=== PATIENT | female | born 1995 | race Caucasian/White ===

== ENCOUNTER 2016-03-15 15:39 | Emergency (ER) | payer OTHER ==
--- NOTE | 2016-03-15 17:40 | ED NURSING NOTES ---
Clinical Report - Nurses [facility] [address] [place] [address] 03/15/2016 15:40 Patient: ZHOU ALFONSO TRIAGE Triage time 15:54. Acuity: LEVEL 3. Chief Complaint: BOIL and TENDER AREA. Alert. No acute distress. SEPSIS SCREEN: Sepsis Screen: negative. Negative (no infection suspected/documented). --15:58 Yoly Pereira R.N. 15:54 03/15/16. BP: 121/74. HR: 79. RR: 18. O2 saturation: 100%. Temp: 98.2 F. Pain level now: 10/10. --15:58 Yoly Pereira R.N. 15:54 03/15/16. BP: 121/74. HR: 79. RR: 18. O2 saturation: 100%. Temp: 98.2 F. Pain level now: 10/10. --16:00 Yoly Pereira R.N. Weight: 58.9 kg stated. Height/Length: 65 inches Per Patient. BMI: 21.6. --15:56 Yoly Pereira R.N. Medications control. implanon. --15:55 Yoly Pereira R.N. ALBUTEROL INHALER. --15:56 Yoly Pereira R.N. Medication/allergy information source: the patient. --15:58 Yoly Pereira R.N. Allergies No Known Drug Allergy. --15:55 Yoly Pereira R.N. History Arrived by private vehicle. Historian: patient. Primary physician ([facility] in [place]). Reported as located on the abdomen. Onset. (3 months). It is described as itchy, burning and painful. She has had itching. Treatment LOG HANDLER: None. PAST MEDICAL HX: Asthma. SOCIAL HX: Light tobacco smoker (cigarette)- less than 1/2 a pack per day. Occasional alcohol use. No drug use. FALL RISK ASSESSMENT: Fall risk assessment completed. No fall risk identified. NUTRITIONAL RISK ASSESSMENT: The nutritional risk assessment revealed no deficiencies. FUNCTIONAL ASSESSMENT: Functional assessment: no impairments noted. LEARNING NEEDS ASSESSMENT: The learning needs assessment revealed no barriers. SKIN INTEGRITY ASSESSMENT: Skin integrity risk assessment completed. No skin integrity risk identified. --15:58 Yoly Pereira R.N. PAST MEDICAL HX: Immunizations: status is unknown. Last normal menstrual period- Feb 19. SURGERY HX: Tonsillectomy. ( bladder expansion). --16:00 Yoly Pereira R.N. Interventions ID band on patient. To room. --15:58 Yoly Pereira R.N. PHYSICAL ASSESSMENT Ambulatory to room. Patient gowned. GENERAL / NEURO / PSYCH: Alert. Appears in pain and anxious. Oriented X 4. HEENT: Mucous membranes are pink. RESPIRATORY: Respirations not labored. CVS: Capillary refill less than 2 seconds. GI / : Abdominal tenderness in the upper abdomen. SKIN: Skin is warm and dry. Skin tenderness present. Swelling present- abd. Increased warmth present. Erythema present. No drainage. --16:01 Yoly Pereira R.N. NURSING PROGRESS NOTES Patient gowned. Head of bed elevated. Two patient identifiers checked. Call light placed in reach. Side rails up x 2. Bed placed in lowest position. Brakes of bed on. Patient ready for evaluation. --16:01 Yoly Pereira R.N. 17:50. I & D: Incision and Drainage of abscess performed by ED physician. Assisted by one nurse. The abscess is located on the abdomen. Preparation: Incision and Drainage tray set up with 2% lidocaine. Procedure: skin cleansed with Shur-Clens; a moderate amount of pus was drained. Cavity was irrigated with saline. Sample obtained for cultures. A dressing was applied. Post-procedure: she was stable and bleeding controlled. Total time of assist / procedure: 15 minutes. --18:03 Yoly Pereira R.N. DISPOSITION / DISCHARGE 18:05. Condition at departure: improved. No learning barriers present. Discharge instructions provided and reviewed with the patient. Reviewed medication(s) side effects, precautions, dosing and course information. Prescription(s) given to the patient. Patient verbalized understanding. Written instructions provided in [place]ik. The patient was discharged home. She left the Emergency Department ambulatory and via private vehicle. Patient driving. Medication list reviewed and validated. --18:06 Yoly Pereira R.N. 18:03 03/15/16. BP: 116/71. HR: 89. RR: 20. O2 saturation: 100%. Temp: deferred. Pain level now: 10/10. 16:34 03/15/16. BP: 112/66. HR: 69. RR: 18. O2 saturation: 100%. Pain level now: 09/09. 15:54 03/15/16. BP: 121/74. HR: 79. RR: 18. O2 saturation: 100%. Temp: 98.2 F. Pain level now: 10/10. --18:06 Yoly Pereira R.N. Locked/Released at 03/15/2016 18:07 by Yoly Pereira R.N.
--- NOTE | 2016-03-15 17:40 | ED ORDER SUMMARY ---
..... Patient: ZHOU ALFONSO OrderSheet [facility] VisitID: [id number] [place] [address] 21y, F Registration Date/Time: 03/15/2016 ORDER SHEET Weight: 58.9 kg (stated) Allergies: No Known Drug Allergy GENERAL ORDERS: Culture, Wound Deep (Abdomen) (abcess) Urgent (17:37 03/15/2016 Giovanni HERNANDEZ) (Ack 17:55 LTapper) (18:06 Epifanio Alcantara) MEDICATION ORDERS: IV FLUIDS: ORDER SHEET NOTES: [Electronically signed by Yoly Pereira R.N. (18:07 03/15/2016)] [Electronically signed by Akash Lo MD (09:34 03/16/2016)] [Electronically locked/signed by Yoly Pereira R.N. (18:07 03/15/2016)]
--- NOTE | 2016-03-15 17:40 | ED ORDER SUMMARY ---
..... Patient: ZHOU ALFONSO OrderSheet [facility] VisitID: [id number] [place] [address] 21y, F Registration Date/Time: 03/15/2016 ORDER SHEET Weight: 58.9 kg (stated) Allergies: No Known Drug Allergy GENERAL ORDERS: Culture, Wound Deep (Abdomen) (abcess) Urgent (17:37 03/15/2016 Giovanni HERNANDEZ) (Ack 17:55 LTapper) (18:06 Epifanio Alcantara) MEDICATION ORDERS: IV FLUIDS: ORDER SHEET NOTES: [Electronically signed by Yoly Pereira R.N. (18:07 03/15/2016)] [Electronically signed by Akash Lo MD (09:34 03/16/2016)] [Electronically locked/signed by Yoly Pereira R.N. (18:07 03/15/2016)]
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
--- NOTE | 2016-03-15 17:40 | ED NURSING NOTES ---
Clinical Report - Nurses [facility] [address] [place] [address] 03/15/2016 15:40 Patient: ZHOU ALFONSO TRIAGE Triage time 15:54. Acuity: LEVEL 3. Chief Complaint: BOIL and TENDER AREA. Alert. No acute distress. SEPSIS SCREEN: Sepsis Screen: negative. Negative (no infection suspected/documented). --15:58 Yoly Pereira R.N. 15:54 03/15/16. BP: 121/74. HR: 79. RR: 18. O2 saturation: 100%. Temp: 98.2 F. Pain level now: 10/10. --15:58 Yoly Pereira R.N. 15:54 03/15/16. BP: 121/74. HR: 79. RR: 18. O2 saturation: 100%. Temp: 98.2 F. Pain level now: 10/10. --16:00 Yoly Pereira R.N. Weight: 58.9 kg stated. Height/Length: 65 inches Per Patient. BMI: 21.6. --15:56 Yoly Pereira R.N. Medications control. implanon. --15:55 Yoly Pereira R.N. ALBUTEROL INHALER. --15:56 Yoly Pereira R.N. Medication/allergy information source: the patient. --15:58 Yoly Pereira R.N. Allergies No Known Drug Allergy. --15:55 Yoly Pereira R.N. History Arrived by private vehicle. Historian: patient. Primary physician ([facility] in [place]). Reported as located on the abdomen. Onset. (3 months). It is described as itchy, burning and painful. She has had itching. Treatment CARDIOPULMONARY PHYSICAL THERAPIST: None. PAST MEDICAL HX: Asthma. SOCIAL HX: Light tobacco smoker (cigarette)- less than 1/2 a pack per day. Occasional alcohol use. No drug use. FALL RISK ASSESSMENT: Fall risk assessment completed. No fall risk identified. NUTRITIONAL RISK ASSESSMENT: The nutritional risk assessment revealed no deficiencies. FUNCTIONAL ASSESSMENT: Functional assessment: no impairments noted. LEARNING NEEDS ASSESSMENT: The learning needs assessment revealed no barriers. SKIN INTEGRITY ASSESSMENT: Skin integrity risk assessment completed. No skin integrity risk identified. --15:58 Yoly Pereira R.N. PAST MEDICAL HX: Immunizations: status is unknown. Last normal menstrual period- Feb 19. SURGERY HX: Tonsillectomy. ( bladder expansion). --16:00 Yoly Pereira R.N. Interventions ID band on patient. To room. --15:58 Yoly Pereira R.N. PHYSICAL ASSESSMENT Ambulatory to room. Patient gowned. GENERAL / NEURO / PSYCH: Alert. Appears in pain and anxious. Oriented X 4. HEENT: Mucous membranes are pink. RESPIRATORY: Respirations not labored. CVS: Capillary refill less than 2 seconds. GI / : Abdominal tenderness in the upper abdomen. SKIN: Skin is warm and dry. Skin tenderness present. Swelling present- abd. Increased warmth present. Erythema present. No drainage. --16:01 Yoly Pereira R.N. NURSING PROGRESS NOTES Patient gowned. Head of bed elevated. Two patient identifiers checked. Call light placed in reach. Side rails up x 2. Bed placed in lowest position. Brakes of bed on. Patient ready for evaluation. --16:01 Yoly Pereira R.N. 17:50. I & D: Incision and Drainage of abscess performed by ED physician. Assisted by one nurse. The abscess is located on the abdomen. Preparation: Incision and Drainage tray set up with 2% lidocaine. Procedure: skin cleansed with Shur-Clens; a moderate amount of pus was drained. Cavity was irrigated with saline. Sample obtained for cultures. A dressing was applied. Post-procedure: she was stable and bleeding controlled. Total time of assist / procedure: 15 minutes. --18:03 Yoly Pereira R.N. DISPOSITION / DISCHARGE 18:05. Condition at departure: improved. No learning barriers present. Discharge instructions provided and reviewed with the patient. Reviewed medication(s) side effects, precautions, dosing and course information. Prescription(s) given to the patient. Patient verbalized understanding. Written instructions provided in [place]ian. The patient was discharged home. She left the Emergency Department ambulatory and via private vehicle. Patient driving. Medication list reviewed and validated. --18:06 Yoly Pereira R.N. 18:03 03/15/16. BP: 116/71. HR: 89. RR: 20. O2 saturation: 100%. Temp: deferred. Pain level now: 10/10. 16:34 03/15/16. BP: 112/66. HR: 69. RR: 18. O2 saturation: 100%. Pain level now: 09/09. 15:54 03/15/16. BP: 121/74. HR: 79. RR: 18. O2 saturation: 100%. Temp: 98.2 F. Pain level now: 10/10. --18:06 Yoly Pereira R.N. Locked/Released at 03/15/2016 18:07 by Yoly Pereira R.N.
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
--- NOTE | 2016-03-16 09:35 | ED MAR SUMMARY ---
..... Medication Administration Record [facility] [address], [place] [id number] Patient: ZHOU ALFONSO Visit ID: [id number] 21y, F Weight: 58.9 kg Height/Length: 65 in BMI: 21.6 ALLERGIES: No Known Drug Allergy
--- NOTE | 2016-03-16 09:35 | ED DISCHARGE INSTRUCTIONS ---
Patient: ZHOU ALFONSO General Instructions [facility] VisitID: [id number] [place] [address] 21y, F Registration Date/Time: 03/15/2016 Single superficial abscess with incision and drainage. INSTRUCTIONS Protect wound and keep wound area clean. Change dressing twice daily. Warnings: Further evaluation is necessary. GENERAL WARNINGS: Return or contact your physician immediately if your condition worsens or changes unexpectedly, if not improving as expected, or if other problems arise. Prescription Medications: Bactrim DS 800 mg / 160 mg: take 1 tablet orally every 12 hours for 10 days. No refill. Substitution is permissible. OTC Medications: Acetaminophen (available over the counter): take according to label instructions. Motrin (available over the counter): take according to label instructions. Follow-up: Follow up with your doctor tomorrow in one day for wound check and packing removal. Understanding of the discharge instructions verbalized by patient. ADDITIONAL INFORMATION Abscess [Incision & Drainage] An abscess (sometimes called a boil) occurs when bacteria get trapped under the skin and begin to grow. Pus forms inside the abscess as the body responds to the bacteria. An abscess can occur with an insect bite, ingrown hair, blocked oil gland, pimple, cyst, or puncture wound. Treatment of your abscess has required an incision to drain the pus. If the abscess pocket was large, a gauze packing may have been inserted. This will need to be removed and possibly replaced on your next visit. Antibiotics are not required in the treatment of a simple abscess, unless the infection is spreading into the skin around the wound (known as cellulitis). Healing of the wound will take about one to two weeks depending on the size of the abscess. Healthy tissue will grow from the bottom and sides of the opening until it seals over. Home Care: The wound may drain for the first two days. Cover the wound with a clean dry dressing. If the dressing becomes soaked with blood or pus, change it. If a gauze packing was placed inside the abscess cavity, you may be advised to remove it yourself. You may do this in the shower. Once the packing is removed, you should wash the area in the shower or bath 3 to 4 times a day, until the skin opening has closed. If you were prescribed antibiotics, take them as directed until they are all gone. You may use acetaminophen (Tylenol) or ibuprofen (Motrin, Advil) to control pain, unless another pain medicine was prescribed. [ NOTE: If you have liver disease or ever had a stomach ulcer, talk with your doctor before using these medicines.] Follow Up with your doctor as advised by our staff. If a gauze packing was inserted in your wound, it should be removed in 1-2 days. Check your wound every day for the signs of worsening infection listed below. Get Prompt Medical Attention if any of the following occur: Increasing redness or swelling Red streaks in the skin leading away from the wound Increasing local pain or swelling Continued pus draining from the wound two days after treatment Fever of 100.4F (38C) or higher, or as directed by your healthcare provider Bandage Change If the bandage becomes wet or dirty, replace it. Otherwise, leave it in place for the first 24 hours. Then once a day: After removing the bandage, wash the area with soap and water. Use a wet cotton swab to loosen and remove any blood or crust that forms on the wound. After cleaning, apply a thin layer of antibiotic ointment or cream. Reapply the bandage. You may shower as usual after the first 24 hours. If the bandage is on an arm or leg, cover it with a plastic bag rubber banded at both ends before showering. No tub baths or swimming until the bandage is removed and the wound healed (at least 7 days). Sulfamethoxazole, Trimethoprim Oral tablet What is this medicine? SULFAMETHOXAZOLE; TRIMETHOPRIM or SMX-TMP (suhl fuh meth OK morro zohl; trye METH oh prim) is a combination of a sulfonamide antibiotic and a second antibiotic, trimethoprim. It is used to treat or prevent certain kinds of bacterial infections. It will not work for colds, flu, or other viral infections. How should I use this medicine? Take this medicine by mouth with a full glass of water. Follow the directions on the prescription label. Take your medicine at regular intervals. Do not take it more often than directed. Do not skip doses or stop your medicine early. Talk to your disability liaison officer regarding the use of this medicine in children. Special care may be needed. This medicine has been used in children as young as 2 months of age. What side effects may I notice from receiving this medicine? Side effects that you should report to your doctor or health medicare coordinator as soon as possible: allergic reactions like skin rash or hives, swelling of the face, lips, or tongue breathing problems fever or chills, sore throat irregular heartbeat, chest pain joint or muscle pain pain or difficulty passing urine red pinpoint spots on skin redness, blistering, peeling or loosening of the skin, including inside the mouth unusual bleeding or bruising unusually weak or tired yellowing of the eyes or skin Side effects that usually do not require medical attention (report to your doctor or health medicare coordinator if they continue or are bothersome): diarrhea dizziness headache loss of appetite nausea, vomiting nervousness What may interact with this medicine? Do not take this medicine with any of the following medications: aminobenzoate potassium dofetilide metronidazole This medicine may also interact with the following medications: DOLORES inhibitors like benazepril, enalapril, lisinopril, and ramipril cyclosporine digoxin diuretics indomethacin medicines for diabetes methenamine methotrexate phenytoin potassium supplements pyrimethamine sulfinpyrazone tricyclic antidepressants warfarin What if I miss a dose? If you miss a dose, take it as soon as you can. If it is almost time for your next dose, take only that dose. Do not take double or extra doses. Where should I keep my medicine? Keep out of the reach of children. Store at room temperature between 20 to 25 degrees C (68 to 77 degrees F). Protect from light. Throw away any unused medicine after the expiration date. What should I tell my health care provider before I take this medicine? They need to know if you have any of these conditions: anemia asthma being treated with anticonvulsants if you frequently drink alcohol containing drinks kidney disease liver disease low level of folic acid or [id number] dehydrogenase poor nutrition or malabsorption porphyria severe allergies thyroid disorder an unusual or allergic reaction to sulfamethoxazole, trimethoprim, sulfa drugs, other medicines, foods, dyes, or preservatives or trying to get breast-feeding What should I watch for while using this medicine? Tell your doctor or health medicare coordinator if your symptoms do not improve. Drink several glasses of water a day to reduce the risk of kidney problems. Do not treat diarrhea with over the counter products. Contact your doctor if you have diarrhea that lasts more than 2 days or if it is severe and watery. This medicine can make you more sensitive to the sun. Keep out of the sun. If you cannot avoid being in the sun, wear protective clothing and use a sunscreen. Do not use sun lamps or tanning beds/booths. Acetaminophen Oral tablet What is this medicine? ACETAMINOPHEN (a set a CLAUDIO jayna fen) is a pain reliever. It is used to treat mild pain and fever. How should I use this medicine? Take this medicine by mouth with a glass of water. Follow the directions on the package or prescription label. Take your medicine at regular intervals. Do not take your medicine more often than directed. Talk to your disability liaison officer regarding the use of this medicine in children. While this drug may be prescribed for children as young as 6 years of age for selected conditions, precautions do apply. What side effects may I notice from receiving this medicine? Side effects that you should report to your doctor or health medicare coordinator as soon as possible: allergic reactions like skin rash, itching or hives, swelling of the face, lips, or tongue breathing problems fever or sore throat redness, blistering, peeling or loosening of the skin, including inside the mouth trouble passing urine or change in the amount of urine unusual bleeding or bruising unusually weak or tired yellowing of the eyes or skin Side effects that usually do not require medical attention (report to your doctor or health medicare coordinator if they continue or are bothersome): headache nausea, stomach upset What may interact with this medicine? alcohol imatinib isoniazid other medicines with acetaminophen What if I miss a dose? If you miss a dose, take it as soon as you can. If it is almost time for your next dose, take only that dose. Do not take double or extra doses. Where should I keep my medicine? Keep out of reach of children. Store at room temperature between 20 and 25 degrees C (68 and 77 degrees F). Protect from moisture and heat. Throw away any unused medicine after the expiration date. What should I tell my health care provider before I take this medicine? They need to know if you have any of these conditions: if you frequently drink alcohol containing drinks liver disease an unusual or allergic reaction to acetaminophen, other medicines, foods, dyes or preservatives or trying to get breast-feeding What should I watch for while using this medicine? Tell your doctor or health medicare coordinator if the pain lasts more than 10 days (5 days for children), if it gets worse, or if there is a new or different kind of pain. Also, check with your doctor if a fever lasts for more than 3 days. Do not take other medicines that contain acetaminophen with this medicine. Always read labels carefully. If you have questions, ask your doctor or pharmacist. If you take too much acetaminophen get medical help right away. Too much acetaminophen can be very dangerous and cause liver damage. Even if you do not have symptoms, it is important to get help right away. Ibuprofen Oral tablet What is this medicine? IBUPROFEN (eye BYOO proe fen) is a non-steroidal anti-inflammatory drug (NSAID). It is used for dental pain, fever, headaches or migraines, osteoarthritis, rheumatoid arthritis, or painful monthly periods. It can also relieve minor aches and pains caused by a cold, flu, or sore throat. How should I use this medicine? Take this medicine by mouth with a glass of water. Follow the directions on the prescription label. Take this medicine with food if your stomach gets upset. Try to not lie down for at least 10 minutes after you take the medicine. Take your medicine at regular intervals. Do not take your medicine more often than directed. A special MedGuide will be given to you by the pharmacist with each prescription and refill. Be sure to read this information carefully each time. Talk to your disability liaison officer regarding the use of this medicine in children. Special care may be needed. What side effects may I notice from receiving this medicine? Side effects that you should report to your doctor or health medicare coordinator as soon as possible: allergic reactions like skin rash, itching or hives, swelling of the face, lips, or tongue black or bloody stools, blood in the urine or in vomit breathing problems changes in vision chest pain general ill feeling or flu-like symptoms nausea or vomiting redness, blistering, peeling or loosening of the skin, including inside the mouth slurred speech or weakness on one side of the body stomach pain unexplained weight gain or swelling unusually weak or tired yellowing of eyes or skin Side effects that usually do not require medical attention (report to your doctor or health medicare coordinator if they continue or are bothersome): constipation or diarrhea dizziness gas or heartburn stomach upset What may interact with this medicine? Do not take this medicine with any of the following medications: cidofovir ketorolac methotrexate pemetrexed This medicine may also interact with the following medications: alcohol aspirin diuretics lithium other drugs for inflammation like prednisone warfarin What if I miss a dose? If you miss a dose, take it as soon as you can. If it is almost time for your next dose, take only that dose. Do not take double or extra doses. Where should I keep my medicine? Keep out of the reach of children. Store at room temperature between 15 and 30 degrees C (59 and 86 degrees F). Keep container tightly closed. Throw away any unused medicine after the expiration date. What should I tell my health care provider before I take this medicine? They need to know if you have any of these conditions: asthma cigarette smoker drink more than 3 alcohol containing drinks a day heart disease or circulation problems such as heart failure or leg edema (fluid retention) high blood pressure kidney disease liver disease stomach bleeding or ulcers an unusual or allergic reaction to ibuprofen, aspirin, other NSAIDS, other medicines, foods, dyes, or preservatives or trying to get breast-feeding What should I watch for while using this medicine? Tell your doctor or healthcare professional if your symptoms do not start to get better or if they get worse. This medicine does not prevent heart attack or stroke. In fact, this medicine may increase the chance of a heart attack or stroke. The chance may increase with longer use of this medicine and in people who have heart disease. If you take aspirin to prevent heart attack or stroke, talk with your doctor or health medicare coordinator. Do not take other medicines that contain aspirin, ibuprofen, or naproxen with this medicine. Side effects such as stomach upset, nausea, or ulcers may be more likely to occur. Many medicines available without a prescription should not be taken with this medicine. This medicine can cause ulcers and bleeding in the stomach and intestines at any time during treatment. Ulcers and bleeding can happen without warning symptoms and can cause . To reduce your risk, do not smoke cigarettes or drink alcohol while you are taking this medicine. You may get drowsy or dizzy. Do not drive, use machinery, or do anything that needs mental alertness until you know how this medicine affects you. Do not stand or sit up quickly, especially if you are an older patient. This reduces the risk of dizzy or fainting spells. This medicine can cause you to bleed more easily. Try to avoid damage to your teeth and gums when you brush or floss your teeth. You have been given the following additional information: Abscess, Incision And Drainage Dressing Change Sulfamethoxazole, Trimethoprim Oral tablet Acetaminophen Oral tablet Ibuprofen Oral tablet (Electronically signed by Akash Lo MD 03/16/2016 9:34)
--- NOTE | 2016-03-16 09:35 | ED MED RECONCILIATION SUMMARY ---
Patient: ZHOU ALFONSO Medication Reconciliation Report Located Within [facility] VisitID: [id number] [place] [address] 21y, F Registration Date/Time: 03/15/2016 Weight: 58.9 kg Height/Length: 65 in. BMI: 21.6 ALLERGIES: No Known Drug Allergy The patient's Home Medications are listed below: THE FOLLOWING MEDICATIONS NEED TO BE RECONCILED: ALBUTEROL INHALER control. implanon The source(s) of the original Home Medication information: patient The following Medications were given to the patient in the Emergency Department: None. The following Medications were prescribed to the patient: Acetaminophen (available over the counter): take according to label instructions. -- Akash Lo MD Motrin (available over the counter): take according to label instructions. -- Akash Lo MD Bactrim DS 800 mg / 160 mg: take 1 tablet orally every 12 hours for 10 days. No refill. Substitution is permissible. -- Akash Lo MD
--- NOTE | 2016-03-16 09:35 | ED MAR SUMMARY ---
..... Medication Administration Record [facility] [address] [place], [place] [id number] Patient: ZHOU ALFONSO Visit ID: [id number] 21y, F Weight: 58.9 kg Height/Length: 65 in BMI: 21.6 ALLERGIES: No Known Drug Allergy
--- NOTE | 2016-03-16 09:35 | ED MED RECONCILIATION SUMMARY ---
Patient: ZHOU ALFONSO Medication Reconciliation Report [facility] VisitID: [id number] [place] [address] 21y, F Registration Date/Time: 03/15/2016 Weight: 58.9 kg Height/Length: 65 in. BMI: 21.6 ALLERGIES: No Known Drug Allergy The patient's Home Medications are listed below: THE FOLLOWING MEDICATIONS NEED TO BE RECONCILED: ALBUTEROL INHALER control. implanon The source(s) of the original Home Medication information: patient The following Medications were given to the patient in the Emergency Department: None. The following Medications were prescribed to the patient: Acetaminophen (available over the counter): take according to label instructions. -- Akash Lo MD Motrin (available over the counter): take according to label instructions. -- Akash Lo MD Bactrim DS 800 mg / 160 mg: take 1 tablet orally every 12 hours for 10 days. No refill. Substitution is permissible. -- Akash Lo MD
== END 2016-03-15 18:05 | disposition home or self-care (01) ==
LOC: ED SRH 15:39
DX: L02.211 Cutaneous abscess of abdominal wall (principal); F17.210 Nicotine dependence, cigarettes, uncomplicated
CPT/HCPCS: 90070; 90131; 90309; 90470; 91672

== ENCOUNTER 2016-03-16 13:02 | Emergency (ER) | payer OTHER ==
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
--- NOTE | 2016-03-20 09:55 | ED MAR SUMMARY ---
..... Medication Administration Record [facility] [address] [place], [place] [id number] Patient: ZHOU ALFONSO Visit ID: [id number] 21y, F Weight: 58.9 kg Height/Length: 65 in BMI: 21.6 ALLERGIES: No Known Drug Allergy
--- NOTE | 2016-03-20 09:55 | ED DISCHARGE INSTRUCTIONS ---
Patient: ZHOU ALFONSO General Instructions [facility] VisitID: [id number] [place] [address] 21y, F Registration Date/Time: 03/16/2016 Abscess check INSTRUCTIONS Warnings: COMPLICATIONS: Complications from this condition include: possible infection. Future problems may include infection and scarring. INFECTION: Watch for signs of infection (increasing heat and redness, pus-like drainage, swelling, or increased pain). Return or see your doctor if these signs occur. GENERAL WARNINGS: Return or contact your physician immediately if your condition worsens or changes unexpectedly, if not improving as expected, or if other problems arise. Your Current Medications: CONTINUE TAKING THE FOLLOWING MEDICATIONS: ALBUTEROL INHALER*. Bactrim Oral : 2x a day. control. implanon*. Follow-up: Follow up with your doctor Friday in two days. Understanding of the discharge instructions verbalized by patient. ADDITIONAL INFORMATION Abscess [Incision & Drainage] An abscess (sometimes called a boil) occurs when bacteria get trapped under the skin and begin to grow. Pus forms inside the abscess as the body responds to the bacteria. An abscess can occur with an insect bite, ingrown hair, blocked oil gland, pimple, cyst, or puncture wound. Treatment of your abscess has required an incision to drain the pus. If the abscess pocket was large, a gauze packing may have been inserted. This will need to be removed and possibly replaced on your next visit. Antibiotics are not required in the treatment of a simple abscess, unless the infection is spreading into the skin around the wound (known as cellulitis). Healing of the wound will take about one to two weeks depending on the size of the abscess. Healthy tissue will grow from the bottom and sides of the opening until it seals over. Home Care: The wound may drain for the first two days. Cover the wound with a clean dry dressing. If the dressing becomes soaked with blood or pus, change it. If a gauze packing was placed inside the abscess cavity, you may be advised to remove it yourself. You may do this in the shower. Once the packing is removed, you should wash the area in the shower or bath 3 to 4 times a day, until the skin opening has closed. If you were prescribed antibiotics, take them as directed until they are all gone. You may use acetaminophen (Tylenol) or ibuprofen (Motrin, Advil) to control pain, unless another pain medicine was prescribed. [ NOTE: If you have liver disease or ever had a stomach ulcer, talk with your doctor before using these medicines.] Follow Up with your doctor as advised by our staff. If a gauze packing was inserted in your wound, it should be removed in 1-2 days. Check your wound every day for the signs of worsening infection listed below. Get Prompt Medical Attention if any of the following occur: Increasing redness or swelling Red streaks in the skin leading away from the wound Increasing local pain or swelling Continued pus draining from the wound two days after treatment Fever of 100.4F (38C) or higher, or as directed by your healthcare provider You have been given the following additional information: Abscess, Incision And Drainage (Electronically signed by Akash Lo MD 03/20/2016 9:55)
--- NOTE | 2016-03-20 09:55 | ED MED RECONCILIATION SUMMARY ---
Patient: ZHOU ALFONSO Medication Reconciliation Report [facility] VisitID: [id number] [address] [place] [address] 21y, F Registration Date/Time: 03/16/2016 Weight: 58.9 kg Height/Length: 65 in. BMI: 21.6 ALLERGIES: No Known Drug Allergy The patient's Home Medications are listed below: CONTINUE TAKING THE FOLLOWING MEDICATIONS: ALBUTEROL INHALER Bactrim Oral, 2x a day control. implanon The source(s) of the original Home Medication information: patient The following Medications were given to the patient in the Emergency Department: None. The following Medications were prescribed to the patient: None.
--- NOTE | 2016-03-20 09:55 | ED MED RECONCILIATION SUMMARY ---
Patient: ZHOU ALFONSO Medication Reconciliation Report [facility] VisitID: [id number] [address] [place] [address] 21y, F Registration Date/Time: 03/16/2016 Weight: 58.9 kg Height/Length: 65 in. BMI: 21.6 ALLERGIES: No Known Drug Allergy The patient's Home Medications are listed below: CONTINUE TAKING THE FOLLOWING MEDICATIONS: ALBUTEROL INHALER Bactrim Oral, 2x a day control. implanon The source(s) of the original Home Medication information: patient The following Medications were given to the patient in the Emergency Department: None. The following Medications were prescribed to the patient: None.
--- NOTE | 2016-03-20 09:55 | ED MAR SUMMARY ---
..... Medication Administration Record [facility] [address] [place], [place] [id number] Patient: ZHOU ALFONSO Visit ID: [id number] 21y, F Weight: 58.9 kg Height/Length: 65 in BMI: 21.6 ALLERGIES: No Known Drug Allergy
== END 2016-03-16 15:15 | disposition home or self-care (01) ==
LOC: ED SRH 13:02
DX: L02.211 Cutaneous abscess of abdominal wall (principal); Z48.01 Encounter for change or removal of surgical wound dressing

== ENCOUNTER 2016-07-12 22:14 | Emergency (ER) | payer OTHER ==
--- NOTE | 2016-07-13 00:39 | DIAGNOSTIC IMAGING REPORT ---
PROCEDURE: US COMPLETE PELVIC W/TRANSVAG INDICATION: Right pelvic pain. TECHNIQUE: Transabdominal and endovaginal cueva scale and color Doppler sonographic images of the female pelvis were obtained. COMPARISON: Comparison is made to CT abdomen and pelvis on 01/10/2016. FINDINGS: TRANSABDOMINAL SCANS: Uterus is of normal size (9.7 x 5.1 x 4.8 cm). Kidneys are normal. TRANSVAGINAL SCANS: Endometrial thickness is normal (is 3 mm). Right ovary is enlarged (4.6 cm) secondary to a 3.5 cm simple cyst. Left ovary is normal (3.2 cm) with small follicular cyst. No evidence of free fluid IMPRESSION: 1. There is a 3.5 cm simple right ovarian cyst. 2. Otherwise negative pelvic ultrasound. 3. Findings discussed with Dr. Keon Warren.
--- NOTE | 2016-07-13 01:20 | ED ORDER SUMMARY ---
..... Patient: ZHOU ALFONSO OrderSheet [facility] VisitID: [id number] [address] [place] [address] 21y, F Registration Date/Time: 07/12/2016 ORDER SHEET Weight: 62.5 kg (stated) Allergies: No Known Drug Allergy GENERAL ORDERS: UA-Culture if indicated Urgent (22:31 07/12/2016 Alondra Castle) (22:41 CHagerty ER Delivery Driver/Supervisor) Urine Urgent (22:31 07/12/2016 Alondra Castle) (22:41 CHagerty ER Delivery Driver/Supervisor) US OB 1st Trimester w Transvag (this month) Urgent (22:51 07/12/2016 Alondra Castle) (Ack 22:54 Guerda ER Delivery Driver/Supervisor) (Cancelled: Other23:38 CHagerty ER Delivery Driver/Supervisor) CBC w Diff Urgent (22:51 07/12/2016 Alondra Castle) (Ack 22:54 Guerda ER Delivery Driver/Supervisor) (23:06 JQuivey R.N.) CMP Urgent (22:51 07/12/2016 Alondra Castle) (Ack 22:54 Karolerty ER Delivery Driver/Supervisor) (23:06 JQuivey R.N.) Pulse oximeter (22:51 07/12/2016 Alondra Castle) (23:06 JQuivey R.N.) US Pelvic Complete w Transvag Urgent (23:38 07/12/2016 CHagerty ER Delivery Driver/Supervisor written order Alondra Castle) (Ack 23:39 CHagerty ER Delivery Driver/Supervisor) (0:21 CHagerty ER Delivery Driver/Supervisor) MEDICATION ORDERS: IV FLUIDS: Morphine IV 4 mg (HIGH ALERT MEDICATION, NOW) (22:51 07/12/2016 Alondra Castle) (Ack 22:54 JQuivey R.N.) (23:04 JQuivey R.N.) IV NS : initial bolus 1000 mL (1000 mL/hr), then none - for X1 (NOW) (22:53 07/12/2016 Alondra Castle) (Ack 22:54 JQuivey R.N.) (23:03 JQuivey R.N.) Zofran IV 4 mg (NOW) (22:54 07/12/2016 Alondra Castle) (Ack 22:54 JQuivey R.N.) (23:03 JQuivey R.N.) Toradol IV 30 mg (NOW) (23:30 07/12/2016 Alondra Castle) (Ack 23:36 JQuivey R.N.) (23:39 JQuivey R.N.) ORDER SHEET NOTES: [Electronically signed by Salazar Samuel R.N. (07/13/2016)] [Electronically signed by Keon Warren Dr. (21:54 07/14/2016)] [Electronically locked/signed by Salazar Samuel R.N. (07/13/2016)]
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
--- NOTE | 2016-07-13 01:20 | ED ORDER SUMMARY ---
..... Patient: ZHOU ALFONSO OrderSheet [facility] VisitID: [id number] [address] [place] [address] 21y, F Registration Date/Time: 07/12/2016 ORDER SHEET Weight: 62.5 kg (stated) Allergies: No Known Drug Allergy GENERAL ORDERS: UA-Culture if indicated Urgent (22:31 07/12/2016 Alondra Castle) (22:41 CHagerty ER Contact Lens Manufacturer) Urine Urgent (22:31 07/12/2016 Alondra Castle) (22:41 CHagerty ER Contact Lens Manufacturer) US OB 1st Trimester w Transvag (this month) Urgent (22:51 07/12/2016 Alondra Castle) (Ack 22:54 Guerda ER Contact Lens Manufacturer) (Cancelled: Other23:38 CHagerty ER Contact Lens Manufacturer) CBC w Diff Urgent (22:51 07/12/2016 Alondra Castle) (Ack 22:54 Guerda ER Contact Lens Manufacturer) (23:06 JQuivey R.N.) CMP Urgent (22:51 07/12/2016 Alondra Castle) (Ack 22:54 Karolerty ER Contact Lens Manufacturer) (23:06 JQuivey R.N.) Pulse oximeter (22:51 07/12/2016 Alondra Castle) (23:06 JQuivey R.N.) US Pelvic Complete w Transvag Urgent (23:38 07/12/2016 CHagerty ER Contact Lens Manufacturer written order Alondra Castle) (Ack 23:39 CHagerty ER Contact Lens Manufacturer) (0:21 CHagerty ER Contact Lens Manufacturer) MEDICATION ORDERS: IV FLUIDS: Morphine IV 4 mg (HIGH ALERT MEDICATION, NOW) (22:51 07/12/2016 Alondra Castle) (Ack 22:54 JQuivey R.N.) (23:04 JQuivey R.N.) IV NS : initial bolus 1000 mL (1000 mL/hr), then none - for X1 (NOW) (22:53 07/12/2016 Alondra Castle) (Ack 22:54 JQuivey R.N.) (23:03 JQuivey R.N.) Zofran IV 4 mg (NOW) (22:54 07/12/2016 Alondra Castle) (Ack 22:54 JQuivey R.N.) (23:03 JQuivey R.N.) Toradol IV 30 mg (NOW) (23:30 07/12/2016 Alondra Castle) (Ack 23:36 JQuivey R.N.) (23:39 JQuivey R.N.) ORDER SHEET NOTES: [Electronically signed by Salazar Samuel R.N. (07/13/2016)] [Electronically signed by Keon Warren Dr. (21:54 07/14/2016)] [Electronically locked/signed by Salazar Samuel R.N. (07/13/2016)]
--- NOTE | 2016-07-13 01:20 | ED CLINICAL REPORT ---
Clinical Report - Physicians/Mid Levels [facility] [address] [place] [address] 07/12/2016 22:16 Patient: ZHOU ALFONSO Time Seen: 2226. Arrived- By private vehicle. Historian- patient. HISTORY OF PRESENT ILLNESS Chief Complaint: ABDOMINAL PAIN. At its maximum, severity described as moderate. When seen in the E.D., severity described as moderate. This started past 3 months and is still present. It was abrupt in onset and has been intermittent but is not gone now. It is described as sharp. No radiation. It is described as located in the right lower quadrant. No nausea, loss of appetite, vomiting or diarrhea. No additional abdominal pain. No recent travel. Similar symptoms previously: Recent medical care: The patient was seen recently in a clinic. ( obtained referral to COLLECTION SYSTEMS MODELER for US. States pain has not changed.). REVIEW OF SYSTEMS All systems otherwise negative, except as recorded above. PAST HISTORY See nurses notes. Medications: Vicodin Oral 5 mg, 4x a day. ALBUTEROL INHALER 2 puff s , PRN. control. implanon. Allergies: No Known Drug Allergy. SOCIAL HISTORY Smoker- current status unknown. No alcohol use or drug use. No recent travel. Is a local resident. PHYSICAL EXAM Appearance: Alert. Oriented X3. No acute distress. (patient eating cheeze-its). Eyes: Pupils equal, round and reactive to light. Eyes normal inspection. ENT: Ears normal. Nose normal. Pharynx normal. Neck: Normal inspection. Neck supple. CVS: Normal heart rate and rhythm. Heart sounds normal. Pulses normal. Respiratory: No respiratory distress. Breath sounds normal. Chest nontender. Abdomen: Soft and nontender. Bowel sounds normal. Skin: Skin warm and dry. Normal skin color. No rash. Normal skin turgor. Extremities: Extremities exhibit normal ROM. No lower extremity edema. LABS, X-RAYS, AND EKG Pelvic Sonogram: PROCEDURE: US COMPLETE PELVIC W/TRANSVAG INDICATION: Right pelvic pain. TECHNIQUE: Transabdominal and endovaginal cueva scale and color Doppler sonographic images of the female pelvis were obtained. COMPARISON: Comparison is made to CT abdomen and pelvis on 01/10/2016. FINDINGS: TRANSABDOMINAL SCANS: Uterus is of normal size (9.7 x 5.1 x 4.8 cm). Kidneys are normal. TRANSVAGINAL SCANS: Endometrial thickness is normal (is 3 mm). Right ovary is enlarged (4.6 cm) secondary to a 3.5 cm simple cyst. Left ovary is normal (3.2 cm) with small follicular cyst. No evidence of free fluid IMPRESSION: 1. There is a 3.5 cm simple right ovarian cyst. 2. Otherwise negative pelvic ultrasound. The study was independently viewed by me, interpreted by the radiologist and discussed with the radiologist. Laboratory Tests: UA-Culture if indicated: (YOANDY: 07/12/2016 22:22) ( [facility] 07/12/2016 22:43) Final results Test Result Flag Units (Reference) URINE COLOR YELLOW URINE APPEARANCE CLEAR URINE GLUCOSE NEGATIVE (NEGATIVE) URINE BILIRUBIN NEGATIVE (NEGATIVE) URINE KETONE NEGATIVE (NEGATIVE) URINE SPECIFIC GRAVITY 1.010 (1.010-1.030) URINE PH 7.0 (5.0-8.0) URINE PROTEIN NEGATIVE (NEGATIVE) URINE UROBILINOGEN 0.2 EU/dL (0.2-1.0) URINE NITRITE NEGATIVE (NEGATIVE) URINE BLOOD NEGATIVE (NEGATIVE) URINE LEUK ESTERASE NEGATIVE (NEGATIVE) URINE RBC 0-1 rbc/hpf (0-1) URINE WBC 0-1 wbc/hpf (0-1) URINE EPITHELIAL CELLS 0-1 EPI/hpf (0-5) URINE BACTERIA NONE SEEN (NONE SEEN) URINE COMMENT CULT NOT INDICATED URINE CULTURES ARE SET-UP BASED ON THE FOLLOWING CRITERIA:POSITIVE NITRITEPOSITIVE LEUKOCYTE ESTERASEGREATER THAN 10 WHITE BLOOD CELLSMODERATE (2+) OR GREATER BACTERIA Urine: (YOANDY: 07/12/2016 22:22) ( [facility] 07/12/2016 22:39) Final results Test Result Flag Units (Reference) URINE NEGATIVE CBC w Diff: (YOANDY: 07/12/2016 22:55) ( [facility] 07/12/2016 23:10) Final results Test Result Flag Units (Reference) WHITE BLOOD COUNT 9.8 K/uL (4.5-11.5) RED BLOOD COUNT 4.07 M/uL (4.00-5.20) HEMOGLOBIN 12.6 gm/dL (12.0-16.0) HEMATOCRIT 37.9 % (36.0-46.0) MEAN CELL VOLUME 93 fL (80-100) MEAN CORPUSCULAR HGB 31 pg (26-34) MEAN CORPUSCULAR HGB CONC 33 g/dL (31-37) RED CELL DISTRIBUTION WIDTH 13.3 % (11.6-14.8) PLATELET COUNT 194 K/uL (150-400) LYMPH % 43.2 H % (25-40) MONO % 5.7 % (3-14) GRANULOCYTE % 51.1 L (53-90) CMP: (YOANDY: 07/12/2016 22:55) ( MsgRcvd 07/12/2016 23:24) Final results Test Result Flag Units (Reference) GLUCOSE 125 H mg/dL (70-110) BUN 8 mg/dL (7-18) CREATININE 0.7 mg/dL (0.6-1.3) Estimated GFR >60 mL/min Estimated GFR- >60 mL/min Note: Persistent reduction over 3 months in eGFR<60 mL/min/1.73 m2 defines CKD. Patients with eGFR values>=60 mL/min/1.73 m2 may also have CKD if evidence ofpersistent proteinuria. Additional information may be foundat [email or web address].org. SODIUM 142 mmol/L (136-145) POTASSIUM 3.5 mmol/L (3.5-5.1) CHLORIDE 107 mmol/L (98-107) CARBON DIOXIDE 25 mmol/L (21-32) CALCIUM 8.5 mg/dL (8.5-10.1) TOTAL PROTEIN 6.6 g/dL (6.4-8.2) ALBUMIN 3.6 g/dL (3.3-5.0) BILIRUBIN, TOTAL 0.3 mg/dL (0.0-1.0) ALKALINE PHOSPHATASE 70 U/L (46-116) AST (SGOT) 19 U/L (15-37) ALT (SGPT) 28 U/L (12-78) . PROGRESS AND PROCEDURES Course of Care: the patient is a pleasant 21-year-old female presented for evaluation of abdominal pain. Patient with symptoms been going on for the past 3 months. Do not feel that this is consistent with acute appendicitis. No change noted with patient's pain symptoms. Patient also reports having negative workup for gonorrhea and chlamydia Patient states she has had a negative pelvic examination. No concern for any other [employer]LE[employer] etiology in regards to 60 transmitted infections. No new sexual partners. no abnormal discharge. no change in odor. Patient is agreeable to the treatment plan. The patient's workup was remarkable for the findings above. No acute abnormalities noted on patient's urinalysis. Patient is not . Pelvic ultrasound shows patient with a ovarian cyst of a moderate size. Patient is updated and reevaluated once the laboratory studies had returned. Patient was eating Doritos this time. Patient resting in bed and in no acute distress. Repeat abdominal exam is benign. Because the patient's workup here in the emergency department, do not feel patient requires additional hospital or further emergency department workup/evaluation. Patient is stable outpatient candidate. Patient does not have a surgical abdomen on my examination or on hhistory/evaluation. No signs of ovarian torsion. No signs of tubo-ovarian abscess. Do not feel that this is appendicitis however acute appendicitis precautions were provided.discussed with patient her workup here in the emergency department, diagnosis, home care, follow-up, and return precautions. All questions have been answered. The patient expressed understanding of these instructions and was agreeable to them. CLINICAL IMPRESSION Acute right lower quadrant abdominal pain. 07/13/2016 01:05 BP: 100/63. HR: 89. RR: 16. O2 saturation: 98%. 07/12/2016 23:27 BP: 98/55. HR: 72. RR: 15. O2 saturation: 100%. Pain level now: 7/10. Blood pressure normal. Oxygen saturation normal. Single simple right ovarian cyst. No torsion of ovary. INSTRUCTIONS Warnings: GENERAL WARNINGS: Return or contact your physician immediately if your condition worsens or changes unexpectedly, if not improving as expected, or if other problems arise. SPECIFICALLY, return if you develop pain, fever, vomiting, the inability to keep fluids down, blood in vomitus, blood in diarrhea, fainting or lightheadedness. Your Current Medications: CONTINUE TAKING THE FOLLOWING MEDICATIONS: ALBUTEROL INHALER* : 2 puff s PRN. control. implanon*. Vicodin Oral : 5 mg 4x a day. Prescription Medications: Zofran (orally disintegrating tablets) 4 mg: take 1 orally every 6 hours as needed for nausea and vomiting. Dispense ten (10). No refill. Substitution is permissible. Percocet 5 mg/325 mg: take 1 tablet orally every 6 hours as needed for pain. Dispense ten (10). No refill. Substitution is permissible. Follow-up: Return to the emergency department as needed. Follow up with your doctor in three days. Reason for referral: recheck today's concerns. Summary of care provided to patient via paper. Screening today revealed the patient's blood pressure to be in the normal range. The patient should follow up with a primary care provider for blood pressure management. Understanding of the discharge instructions verbalized by patient. (Electronically signed by Keon Warren Dr. 07/14/2016 21:54)
--- NOTE | 2016-07-13 01:20 | ED NURSING NOTES ---
Clinical Report - Nurses [facility] [address] [place] [address] 07/12/2016 22:16 Patient: ZHOU ALFONSO TRIAGE Triage time 22:21. Acuity: LEVEL 4. Chief Complaint: PAINFUL URINATION, URGENCY and FREQUENCY and ABDOMINAL PAIN and LOW BACK PAIN. 22:30. Alert. --22:30 Salazar Samuel R.N. 22:21 07/12/16. BP: 110/70. HR: 98. RR: 15. O2 saturation: 100% on room air. Temp: 98.2 F (oral). Pain level now: 11/10. --22:30 Salazar Samuel R.N. Weight: 62.5 kg stated. Height/Length: 65 inches Per Patient. BMI: 23. --22:27 Salazar Samuel R.N. Medications ALBUTEROL INHALER 2 puff s , PRN. control. implanon. --22:26 Salazar Samuel R.N. Vicodin Oral 5 mg, 4x a day. --22:26 Salazar Samuel R.N. Allergies No Known Drug Allergy. --22:27 Salazar Samuel R.N. Medication/allergy information source: the patient. --22:30 Salazar Samuel R.N. History Arrived by private vehicle. Historian: patient. Accompanied by sister. Primary physician (Halina). Onset. (3 months ago). ( Patient reports having similar symptoms for about 3 months, has an appointment with an WATER T[employer]ATMENT PLANT REPAIRER on 07/19 and an Ultrasound scheduled for 07/22). Treatment PROGRAM ADMIN: (Vicodin, heating pad). PAST MEDICAL HX: Immunizations: up-to-date. Last normal menstrual period was 3 weeks ago. SOCIAL HX: Current every day heavy tobacco smoker- less than 1 pack per day. Occasional alcohol use. No drug use. No infectious disease exposure. ABUSE ASSESSMENT: No report of abuse. FALL RISK ASSESSMENT: Fall risk assessment completed. No fall risk identified. NUTRITIONAL RISK ASSESSMENT: The nutritional risk assessment revealed no deficiencies. FUNCTIONAL ASSESSMENT: Functional assessment: no impairments noted. LEARNING NEEDS ASSESSMENT: The learning needs assessment revealed no barriers. SKIN INTEGRITY ASSESSMENT: Skin integrity risk assessment completed. No skin integrity risk identified. --22:30 Salazar Samuel R.N. PROBLEMS: Abscess. Fibromyalgia. Dental Pain. Ankle Fracture. Pelvic Inflammatory Disease. UTI - Urinary Tract Infection. Asthma. --22:27 Salazar Samuel R.N. ADDITIONAL SURGERIES: Tonsillectomy. --22:27 Salazar Samuel R.N. Interventions ID band on patient. To treatment room. --22:30 Salazar Samuel R.N. PHYSICAL ASSESSMENT 22:22. Ambulatory to room. GENERAL / NEURO / PSYCH: Alert. Oriented X 4. HEENT: Mucous membranes are pink. RESPIRATORY: Respirations not labored. SKIN: Skin is warm and dry. --22:22 Salazar Samuel R.N. NURSING PROGRESS NOTES 22:22. Patient ID band checked for patient name and birthdate: patient confirmed. Clean catch urine collected with return of yellow-colored clear urine; sample sent to lab for urinalysis and HCG. Specimen labeled in the presence of the patient. --22:30 Salazar Samuel R.N. 22:30. Head of bed elevated. Two patient identifiers checked. Call light placed in reach. Bed placed in lowest position. Brakes of bed on. Patient ready for evaluation- chart flagged. --22:30 Salazar Samuel R.N. 22:56 07/12/2016 Site #1 started via IV in the right antecubital space with an 20g angiocath, with aseptic technique and good blood return; one attempt. Blood drawn: rainbow set. Labeled in the presence of the patient and sent to the lab. Saline lock flushed with 10 mL saline (by Parth MCKEON). --23:03 Salazar Samuel R.N. 23:01 07/12/2016 Started bag #1 1000 mL IV Fluids IV NS (Saline); at 1000 mL/hr over 1 hour(s) via site #1 --23:03 Salazar Samuel R.N. 23:01 07/12/2016 Zofran (Ondansetron HCl) IVP 4 mg given over 2 minute(s) via site #1. Allergies verified and confirmed 5 rights. IV patency established. IV site checked: no pain, redness, or swelling. IV flushed thoroughly pre- and post-medication administration. --23:03 Salazar Samuel R.N. 23:03 07/12/2016 Morphine IVP 4 mg given over 2 minute(s) via site #1. Allergies verified, confirmed 5 rights and sedative warning given to the patient and patient's business improvement manager. IV patency established. IV site checked: no pain, redness, or swelling. IV flushed thoroughly pre- and post-medication administration. --23:04 Salazar Samuel R.N. 23:04. Pulse oximeter placed on patient; monitor alarms on. --23:04 Salazar Samuel R.N. 23:27 07/12/16. BP: 98/55. HR: 72. RR: 15. O2 saturation: 100% on room air. Pain level now: 09/09. --23:29 Salazar Samuel R.N. The patient is calm and resting quietly. SKIN: Skin is warm and dry. Skin color within normal limits. --23:29 Salazar Samuel R.N. 23:37 07/12/2016 Toradol IVP 30 mg given over 2 minute(s) via site #1. Allergies verified and confirmed 5 rights. IV patency established. IV site checked: no pain, redness, or swelling. IV flushed thoroughly pre- and post-medication administration. --23:39 Salazar Samuel R.N. 23:39 07/12/2016 IV Fluids IV NS Discontinued: bag #1 infused. Total amount infused: 1000 mL. IV patency established. IV site checked: no pain, redness, or swelling. IV flushed thoroughly. --23:39 Salazar Samuel R.N. 23:52 biological technical officer with pt for exam. --23:56 Salazar Samuel R.N. 01:05 07/13/16. BP: 100/63. HR: 89. RR: 16. O2 saturation: 98% on room air. --01:05 Salazar Samuel R.N. 01:22. The patient is calm and resting quietly. Overall patient status is improved- she states feels better. SKIN: Skin is warm and dry. Skin color within normal limits. --01:27 Salazar Samuel R.N. DISPOSITION / DISCHARGE 01:21 07/13/2016 Site #1 removed upon discharge. Catheter intact. Bandage applied. --01:26 Salazar Samuel R.N. Departure time: 01:25. Condition at departure: stable. No learning barriers present. Discharge instructions provided and reviewed with business improvement manager and the patient. Reviewed medication(s) side effects, precautions, dosing and course information. Prescription(s) given to the patient. Patient and business improvement manager verbalized understanding. Written instructions provided in Latvian. The patient was discharged home and accompanied by business improvement manager. She left the Emergency Department ambulatory and via private vehicle. Tube Dispatcher driving. FALL RISK ASSESSMENT: Fall risk assessment completed. No fall risk identified. --: Salazar Samuel R.N. 01:20 07/13/16. BP: 98/56. HR: 83. RR: 16. O2 saturation: 100%. Pain level now: 09/09. --01:26 Salazar Samuel R.N. Locked/Released at 07/13/2016 1:27 by Salazar Samuel R.N.
--- NOTE | 2016-07-14 21:54 | ED MAR SUMMARY ---
..... Medication Administration Record [facility] [address] [place] [address] Patient: ZHOU ALFONSO Visit ID: [id number] 21y, F Weight: 62.5 kg Height/Length: 65 in BMI: 23 ALLERGIES: No Known Drug Allergy Start 23:01 07/12/2016 Salazar Samuel R.N., Stop 23:39 07/12/2016 Salazar Samuel R.N. Medication Administered: IV NS (SALINE), Dose: IV Fluids over 1 hour(s), Rate: 1000 mL/hr, Dispensed: 1000 mL bag, Site: #1 right AC. Medication Ordered: IV NS : initial bolus 1000 mL (1000 mL/hr), then none - for X1 (NOW). Given 23:01 07/12/2016 Salazar Samuel R.N. Medication Administered: ZOFRAN [IVP] (ONDANSETRON HCL), Dose: 4 mg IVP over 2 minute(s), Site: #1 right AC. Medication Ordered: Zofran IV 4 mg (NOW). Given 23:03 07/12/2016 Salazar Samuel R.NTamica Medication Administered: MORPHINE [IVP], Dose: 4 mg IVP over 2 minute(s), Site: #1 right AC. Medication Ordered: Morphine IV 4 mg (HIGH ALERT MEDICATION, NOW). Given 23:37 07/12/2016 Salazar Samuel R.NTamica Medication Administered: TORADOL [IVP], Dose: 30 mg IVP over 2 minute(s), Site: #1 right AC. Medication Ordered: Toradol IV 30 mg (NOW).
--- NOTE | 2016-07-14 21:54 | ED MED RECONCILIATION SUMMARY ---
Patient: ZHOU ALFONSO Medication Reconciliation Report [facility] VisitID: [id number] [address] [place] [address] 21y, F Registration Date/Time: 07/12/2016 Weight: 62.5 kg Height/Length: 65 in. BMI: 23.0 ALLERGIES: No Known Drug Allergy The patient's Home Medications are listed below: CONTINUE TAKING THE FOLLOWING MEDICATIONS: ALBUTEROL INHALER 2 puff s , PRN control. implanon Vicodin Oral 5 mg, 4x a day The source(s) of the original Home Medication information: patient The following Medications were given to the patient in the Emergency Department: IV NS IV Fluids bolus 0, then 1000 mL/hr, administered: 07/12/2016 11:01:00 PM Zofran [IVP] IVP 4 mg, administered: 07/12/2016 11:01:00 PM Morphine [IVP] IVP 4 mg, administered: 07/12/2016 11:03:00 PM Toradol [IVP] IVP 30 mg, administered: 07/12/2016 11:37:00 PM The following Medications were prescribed to the patient: Zofran (orally disintegrating tablets) 4 mg: take 1 orally every 6 hours as needed for nausea and vomiting. Dispense ten (10). No refill. Substitution is permissible. -- Keon Warren Dr. Percocet 5 mg/325 mg: take 1 tablet orally every 6 hours as needed for pain. Dispense ten (10). No refill. Substitution is permissible. -- Keon Warren Dr.
--- NOTE | 2016-07-14 21:54 | ED MAR SUMMARY ---
..... Medication Administration Record [facility] [address] [place] [address] Patient: ZHOU ALFONSO Visit ID: [id number] 21y, F Weight: 62.5 kg Height/Length: 65 in BMI: 23 ALLERGIES: No Known Drug Allergy Start 23:01 07/12/2016 Salazar Samuel R.N., Stop 23:39 07/12/2016 Salazar Samuel R.N. Medication Administered: IV NS (SALINE), Dose: IV Fluids over 1 hour(s), Rate: 1000 mL/hr, Dispensed: 1000 mL bag, Site: #1 right AC. Medication Ordered: IV NS : initial bolus 1000 mL (1000 mL/hr), then none - for X1 (NOW). Given 23:01 07/12/2016 Salazar Samuel R.N. Medication Administered: ZOFRAN [IVP] (ONDANSETRON HCL), Dose: 4 mg IVP over 2 minute(s), Site: #1 right AC. Medication Ordered: Zofran IV 4 mg (NOW). Given 23:03 07/12/2016 Salazar Samuel R.NTamica Medication Administered: MORPHINE [IVP], Dose: 4 mg IVP over 2 minute(s), Site: #1 right AC. Medication Ordered: Morphine IV 4 mg (HIGH ALERT MEDICATION, NOW). Given 23:37 07/12/2016 Salazar Samuel R.NTamica Medication Administered: TORADOL [IVP], Dose: 30 mg IVP over 2 minute(s), Site: #1 right AC. Medication Ordered: Toradol IV 30 mg (NOW).
--- NOTE | 2016-07-14 21:54 | ED MED RECONCILIATION SUMMARY ---
Patient: ZHOU ALFONSO Medication Reconciliation Report [facility] VisitID: [id number] [address] [place] [address] 21y, F Registration Date/Time: 07/12/2016 Weight: 62.5 kg Height/Length: 65 in. BMI: 23.0 ALLERGIES: No Known Drug Allergy The patient's Home Medications are listed below: CONTINUE TAKING THE FOLLOWING MEDICATIONS: ALBUTEROL INHALER 2 puff s , PRN control. implanon Vicodin Oral 5 mg, 4x a day The source(s) of the original Home Medication information: patient The following Medications were given to the patient in the Emergency Department: IV NS IV Fluids bolus 0, then 1000 mL/hr, administered: 07/12/2016 11:01:00 PM Zofran [IVP] IVP 4 mg, administered: 07/12/2016 11:01:00 PM Morphine [IVP] IVP 4 mg, administered: 07/12/2016 11:03:00 PM Toradol [IVP] IVP 30 mg, administered: 07/12/2016 11:37:00 PM The following Medications were prescribed to the patient: Zofran (orally disintegrating tablets) 4 mg: take 1 orally every 6 hours as needed for nausea and vomiting. Dispense ten (10). No refill. Substitution is permissible. -- Keon Warren Dr. Percocet 5 mg/325 mg: take 1 tablet orally every 6 hours as needed for pain. Dispense ten (10). No refill. Substitution is permissible. -- Keon Warren Dr.
--- NOTE | 2016-07-14 21:54 | ED DISCHARGE INSTRUCTIONS ---
Patient: ZHOU ALFONSO General Instructions [facility] VisitID: [id number] [place] [place] [address] 21y, F Registration Date/Time: 07/12/2016 Acute right lower quadrant abdominal pain. 07/13/2016 01:05 BP: 100/63. HR: 89. RR: 16. O2 saturation: 98%. 07/12/2016 23:27 BP: 98/55. HR: 72. RR: 15. O2 saturation: 100%. Pain level now: 10. Blood pressure normal. Oxygen saturation normal. Single simple right ovarian cyst. No torsion of ovary. INSTRUCTIONS Warnings: GENERAL WARNINGS: Return or contact your physician immediately if your condition worsens or changes unexpectedly, if not improving as expected, or if other problems arise. SPECIFICALLY, return if you develop pain, fever, vomiting, the inability to keep fluids down, blood in vomitus, blood in diarrhea, fainting or lightheadedness. Your Current Medications: CONTINUE TAKING THE FOLLOWING MEDICATIONS: ALBUTEROL INHALER* : 2 puff s PRN. control. implanon*. Vicodin Oral : 5 mg 4x a day. Prescription Medications: Zofran (orally disintegrating tablets) 4 mg: take 1 orally every 6 hours as needed for nausea and vomiting. Dispense ten (10). No refill. Substitution is permissible. Percocet 5 mg/325 mg: take 1 tablet orally every 6 hours as needed for pain. Dispense ten (10). No refill. Substitution is permissible. Follow-up: Return to the emergency department as needed. Follow up with your doctor in three days. Reason for referral: recheck today's concerns. Summary of care provided to patient via paper. Screening today revealed the patient's blood pressure to be in the normal range. The patient should follow up with a primary care provider for blood pressure management. Understanding of the discharge instructions verbalized by patient. ADDITIONAL INFORMATION Abdominal Pain, Unknown Cause (Female) The exact cause of your abdominal (stomach) pain is not certain. This does not mean that this is something to worry about, or the right tests were not done. Everyone likes to know the exact cause of the problem, but sometimes with abdominal pain, there is no clear-cut cause, and this could be a good thing. The good news is that your symptoms can be treated, and you will feel better. Your condition does not seem serious now; however, sometimes the signs of a serious problem may take more time to appear. For this reason,it is important for you to watch for any new symptoms, problems,or worsening of your condition. Over the next few days, the abdominal pain may come and go, or be continuous. Other common symptoms can include nausea and vomiting. Sometimes it can be difficult to tell if you feel nauseous, you may just feel bad and not associate that feeling with nausea. Constipation, diarrhea, and a fever may go along with the pain. The pain may continue even if treated correctly over the following days. Depending on how things go, sometimes the cause can become clear and may require further or different treatment. Additional evaluations, medications, or tests may be needed. Home care Your health care provider may prescribe medications for pain, symptoms, or an infection. Follow the health care provider's instructions for taking these medications. General care Rest until your next exam. No strenuous activities. Try to find positions that ease discomfort. A small pillow placed on the abdomen may help relieve pain. Something warm on your abdomen (such as a heating pad) may help, but be careful not to burn yourself. Diet Do not force yourself to eat, especially if having cramps, vomiting, or diarrhea. Water is important so you do not get dehydrated. Soup may also be good. Sports drinks may also help, especially if they are not too acidic. Make sure you don't drink sugary drinks as this can make things worse. Take liquids in small amounts. Do not guzzle them. Caffeine sometimes makes the pain and cramping worse. Avoid dairy products if you have vomiting or diarrhea. Don't eat large amounts at a time. Wait a few minutes between bites. Eat a diet low in fiber (called a low-residue diet). Foods allowed include refined breads, white rice, fruit and vegetable juices without pulp, tender meats. These foods will pass more easily through the intestine. Avoid whole-grain foods, whole fruits and vegetables, meats, seeds and nuts, fried or fatty foods, dairy, alcohol and spicy foods until your symptoms go away. Follow-up care Follow up with your health care provider as instructed, or if your pain does not begin to improve in the next 24 hours. When to seek medical care Seek prompt medical care if any of the following occur: Pain gets worse or moves to the right lower abdomen New or worsening vomiting or diarrhea Swelling of the abdomen Unable to pass stool for more than three days Fever of 100.4F (38C) or higher, or as directed by your healthcare provider. Blood in vomit or bowel movements (dark red or black color) Jaundice (yellow color of eyes and skin) Weakness, dizziness Chest, arm, back, neck or jaw pain Unexpected vaginal bleeding or missed period Call 911 Call emergency services if any of the following occur: Trouble breathing Confusion Fainting or loss of consciousness Rapid heart rate Seizure Abdominal Pain,Possible Appendicitis [Repeat Exam, Female] Based on your visit today, the exact cause of your abdominal (stomach) pain is not certain. However, you do have some of the early signs of APPENDICITIS. Early in an appendix infection the symptoms can be similar to a simple "stomach ache" or "stomach flu". Therefore, the diagnosis can be hard to make. Since an appendix infection is a serious condition, it is important to know if this is the cause of your symptoms. WAITING for more time to pass and repeating the exam is the best way to find out whether you have appendicitis. Within the next 12-24 hours the cause of your stomach pain should become clear. It is important for you to watch for any new symptoms or worsening of your condition. (See below). Home Care: Rest until your next exam. No strenuous activities. Eat a diet low in fiber (called a low-residue diet). Foods allowed include refined breads, white rice, fruit and vegetable juices without pulp, tender meats. These foods will pass more easily through the intestine. Avoid whole-grain foods, whole fruits and vegetables, meats, seeds and nuts, fried or fatty foods, dairy, alcohol and spicy foods until your symptoms go away. In some cases, you may be asked not to eat or drink anything until you are re-examined. Return for another exam exactly as directed. Follow Up with your doctor or this facility as directed. Get Prompt Medical Attention if any of the following occur: Pain gets worse or moves to the right lower abdomen New or worsening vomiting or diarrhea Swelling of the abdomen Unable to pass stool for more than three days Fever of 100.4F (38C) or higher, or as directed by your healthcare provider Blood in vomit or bowel movements (dark red or black color) Weakness, dizziness or fainting Unexpected vaginal bleeding Ovarian Cyst The ovary is a small organ located on each side of the uterus. During each menstrual cycle a tiny egg sac forms in the ovary. If the egg is released but does not occur, this sac usually dissolves. Sometimes, the sac may fill with fluid. It then enlarges into a painful cyst. Usually the cyst will rupture or shrink on its own. In either case, the pain gradually goes away over the next 1-3 days. If the cyst does not shrink or rupture, it may cause continued pain. Home Care: Rest in bed and avoid heavy exertion until you are feeling better. Heat to the lower abdomen usually helps (heating pad or hot packs -- a small towel soaked in hot water). You may use acetaminophen (Tylenol) or ibuprofen (Motrin, Advil) to control pain, unless another pain medicine was prescribed. [NOTE: If you have chronic liver or kidney disease or ever had a stomach ulcer or GI bleeding, talk with your doctor before using these medicines.] Follow Up: See your doctor within the next 2-3 days if your pain doesnt improve. Otherwise, follow up with your doctor after your next period or as directed by our staff. Get Prompt Medical Attention if any of the following occur: Pain worsens or fails to respond to the above measures Fever of 100.4F (38C) or higher, or as directed by your healthcare provider Heavy vaginal bleeding (soaking one pad an hour for three hours) You feel weak or dizzy Fainting Passage of a pink or cueva tissue with menstrual bleeding Ondansetron Oral disintegrating tablet What is this medicine? ONDANSETRON (on EVANGELINA se maurizio) is used to treat nausea and vomiting caused by chemotherapy. It is also used to prevent or treat nausea and vomiting after surgery. How should I use this medicine? These tablets are made to dissolve in the mouth. Do not try to push the tablet through the foil backing. With dry hands, peel away the foil backing and gently remove the tablet. Place the tablet in the mouth and allow it to dissolve, then swallow. While you may take these tablets with water, it is not necessary to do so. Talk to your talent acquisition associate regarding the use of this medicine in children. Special care may be needed. What side effects may I notice from receiving this medicine? Side effects that you should report to your doctor or health director of home care hospice as soon as possible: allergic reactions like skin rash, itching or hives, swelling of the face, lips, or tongue breathing problems dizziness fast or irregular heartbeat feeling faint or lightheaded, falls fever and chills swelling of the hands and feet tightness in the chest Side effects that usually do not require medical attention (report to your doctor or health director of home care hospice if they continue or are bothersome): constipation or diarrhea headache What may interact with this medicine? Do not take this medicine with any of the following medications: -apomorphine -cisapride -dofetilide -dronedarone -pimozide -thioridazine -ziprasidone This medicine may also interact with the following medications: -carbamazepine -phenytoin -rifampicin -tramadol -other medicines that prolong the QT interval (cause an abnormal heart rhythm) What if I miss a dose? If you miss a dose, take it as soon as you can. If it is almost time for your next dose, take only that dose. Do not take double or extra doses. Where should I keep my medicine? Keep out of the reach of children. Store between 2 and 30 degrees C (36 and 86 degrees F). Throw away any unused medicine after the expiration date. What should I tell my health care provider before I take this medicine? They need to know if you have any of these conditions: heart disease history of irregular heartbeat liver disease low levels of magnesium or potassium in the blood an unusual or allergic reaction to ondansetron, granisetron, other medicines, foods, dyes, or preservatives or trying to get breast-feeding What should I watch for while using this medicine? Check with your doctor or health director of home care hospice as soon as you can if you have any sign of an allergic reaction. Oxycodone Hydrochloride, Acetaminophen Oral tablet What is this medicine? ACETAMINOPHEN; OXYCODONE (a set a CLAUDIO jayna fen; ox i KOE done) is a pain reliever. It is used to treat mild to moderate pain. How should I use this medicine? Take this medicine by mouth with a full glass of water. Follow the directions on the prescription label. Take your medicine at regular intervals. Do not take your medicine more often than directed. Talk to your talent acquisition associate regarding the use of this medicine in children. Special care may be needed. Patients over 65 years old may have a stronger reaction and need a smaller dose. What side effects may I notice from receiving this medicine? Side effects that you should report to your doctor or health director of home care hospice as soon as possible: allergic reactions like skin rash, itching or hives, swelling of the face, lips, or tongue breathing difficulties, wheezing confusion light headedness or fainting spells severe stomach pain yellowing of the skin or the whites of the eyes Side effects that usually do not require medical attention (report to your doctor or health director of home care hospice if they continue or are bothersome): dizziness drowsiness nausea vomiting What may interact with this medicine? alcohol antihistamines barbiturates like amobarbital, butalbital, butabarbital, methohexital, pentobarbital, phenobarbital, thiopental, and secobarbital benztropine drugs for bladder problems like solifenacin, trospium, oxybutynin, tolterodine, hyoscyamine, and methscopolamine drugs for breathing problems like ipratropium and tiotropium drugs for certain stomach or intestine problems like propantheline, homatropine methylbromide, glycopyrrolate, atropine, belladonna, and dicyclomine general anesthetics like etomidate, ketamine, nitrous oxide, propofol, desflurane, enflurane, halothane, isoflurane, and sevoflurane medicines for depression, anxiety, or psychotic disturbances medicines for sleep muscle relaxants naltrexone narcotic medicines (opiates) for pain phenothiazines like perphenazine, thioridazine, chlorpromazine, mesoridazine, fluphenazine, prochlorperazine, promazine, and trifluoperazine scopolamine tramadol trihexyphenidyl What if I miss a dose? If you miss a dose, take it as soon as you can. If it is almost time for your next dose, take only that dose. Do not take double or extra doses. Where should I keep my medicine? Keep out of the reach of children. This medicine can be abused. Keep your medicine in a safe place to protect it from theft. Do not share this medicine with anyone. Selling or giving away this medicine is dangerous and against the law. Store at room temperature between 20 and 25 degrees C (68 and 77 degrees F). Keep container tightly closed. Protect from light. This medicine may cause accidental overdose and if it is taken by other adults, children, or pets. Flush any unused medicine down the toilet to reduce the chance of harm. Do not use the medicine after the expiration date. What should I tell my health care provider before I take this medicine? They need to know if you have any of these conditions: brain tumor Crohn's disease, inflammatory bowel disease, or ulcerative colitis drink more than 3 alcohol containing drinks per day drug abuse or addiction head injury heart or circulation problems kidney disease or problems going to the bathroom liver disease lung disease, asthma, or breathing problems an unusual or allergic reaction to acetaminophen, oxycodone, other opioid analgesics, other medicines, foods, dyes, or preservatives or trying to get breast-feeding What should I watch for while using this medicine? Tell your doctor or health director of home care hospice if your pain does not go away, if it gets worse, or if you have new or a different type of pain. You may develop tolerance to the medicine. Tolerance means that you will need a higher dose of the medication for pain relief. Tolerance is normal and is expected if you take this medicine for a long time. Do not suddenly stop taking your medicine because you may develop a severe reaction. Your body becomes used to the medicine. This does NOT mean you are addicted. Addiction is a behavior related to getting and using a drug for a non-medical reason. If you have pain, you have a medical reason to take pain medicine. Your doctor will tell you how much medicine to take. If your doctor wants you to stop the medicine, the dose will be slowly lowered over time to avoid any side effects. You may get drowsy or dizzy. Do not drive, use machinery, or do anything that needs mental alertness until you know how this medicine affects you. Do not stand or sit up quickly, especially if you are an older patient. This reduces the risk of dizzy or fainting spells. Alcohol may interfere with the effect of this medicine. Avoid alcoholic drinks. There are different types of narcotic medicines (opiates) for pain. If you take more than one type at the same time, you may have more side effects. Give your health care provider a list of all medicines you use. Your doctor will tell you how much medicine to take. Do not take more medicine than directed. Call emergency for help if you have problems breathing. The medicine will cause constipation. Try to have a bowel movement at least every 2 to 3 days. If you do not have a bowel movement for 3 days, call your doctor or health director of home care hospice. Do not take Tylenol (acetaminophen) or medicines that have acetaminophen with this medicine. Too much acetaminophen can be very dangerous. Many nonprescription medicines contain acetaminophen. Always read the labels carefully to avoid taking more acetaminophen. You have been given the following additional information: Abdominal Pain, Unknown Cause, (Female) Abdominal Pain, Possible Appendicitis (Female) Ovarian Cyst Ondansetron Oral disintegrating tablet Oxycodone Hydrochloride, Acetaminophen Oral tablet (Electronically signed by Keon Warren Dr. 07/14/2016 21:54)
== END 2016-07-13 01:25 | disposition home or self-care (01) ==
LOC: ED SRH 22:14
DX: N83.291 Other ovarian cyst, right side (principal); R10.31 Right lower quadrant pain; J45.909 Unspecified asthma, uncomplicated; Z79.51 Long term (current) use of inhaled steroids
CPT/HCPCS: 90004; 90100; 93070; 95059